=== PATIENT | female | born 1980 | race African-American/Black ===

== ENCOUNTER 2017-01-17 22:58 | Emergency (ER) | payer SELFPAY ==
[~2017-01-17] VITALS: Ht 162.6 cm; Wt 136.0 kg
[~2017-01-17 22:58] MED LIST: METH250T PO
[2017-01-17 23:00] VITALS: BP 168/98; PULSE 82; RESP 16; TEMP 99.3; O2SAT 99
[2017-01-18] MEDS ORDERED: SODIUM CHLOR 0.9% 1000 ML INJ 1,000 ML IV ONE (01:00)
[2017-01-18] MEDS ORDERED: ONDANSETRON HCL 4 MG/2 ML VIAL IV ONE (01:00)
--- NOTE | 2017-01-18 01:04 | PD ---
HPI Chief Complaint: GI Complaint Time Seen by Provider: 23:48 Travel History International Travel<30 days: No Contact w/Intl Traveler<30days: No Traveled to known affect area: No History of Present Illness HPI The patient is a 36 year old female who presents to the [facility] emergency department with a history of n/v/d that began a week ago. She is having diarrhea 5-6 x per day. The stool is brown in color. She denies any blood or mucus in the stool. She has had n/v x3 per day. She denies any sick contacts, no recent antibiotic use, camping, or foreign travel. It began after a potluck dinner at work. A review of systems, the patient otherwise denies any fevers, cough, congestion, neck pain, chest pain, shortness of breath, urinary symptoms, or neurologic symptoms. LMP: beginning of Jan. PFS Past Medical History Narrative Medical The patient's past medical history is significant for hypertension. Diminished Hearing: No Hypertension: Yes Immunizations Current: No Tetanus Vaccination: < 5 Years Influenza Vaccination: No ?: Not LMP: 01/06/17 : 2 Para: 1 Miscarriage: 0 : 0 Past Surgical History Narrative Surgical The patient's past surgical history is significant for a . Section: Yes Social History Alcohol Use: No Tobacco Use: Yes (1/2 ppd) Substance Use: Yes (MARIJUANA/DAILY PT DENIES) Allergies-Medications (Allergen,Severity, Reaction): Coded Allergies: No Known Allergies (Verified , 01/17/17) Reported Meds & Prescriptions Reported Meds & Active Scripts Active Zofran Odt (Ondansetron Odt) 4 Mg Tab 4 Mg SL Q6HR PRN Aldomet (Methyldopa) 250 Mg Tab 500 Mg PO TID Review of Systems Except as stated in HPI: all other systems reviewed are Neg General / Constitutional: No: Fever Eyes: No: Visual changes HENT: No: Headaches Cardiovascular: No: Chest Pain or Discomfort Respiratory: No: Shortness of Breath Gastrointestinal: Positive: Nausea, Vomiting, Diarrhea, Abdominal Pain, Changes in Bowel Habits, No: Hematemesis, Hematochezia Genitourinary: No: Dysuria Musculoskeletal: No: Pain Skin: No Rash Neurologic: No: Weakness Psychiatric: No: Depression Endocrine: No: Polydipsia Hematologic/Lymphatic: No: Easy Bruising Physical Exam Narrative General: The patient is a well-developed well-nourished female in no acute distress. Head and Neck exam: Head is normocephalic atraumatic. Eyes: EOMI, pupils are equal round and reactive to light. Nose: Midline septum with pink mucous membranes Mouth: Dentition unremarkable. Moist mucus membranes. Posterior oropharynx is not erythematous. No tonsillar hypertrophy. Uvula midline. Airway patent. Neck: No palpable lymphadenopathy. No nuchal rigidity. No thyromegaly. Cardiovascular: Regular rate and rhythm without murmurs, gallops, or rubs. Lungs: Clear to auscultation bilaterally. No wheezes, rhonchi, or rales. Abdomen: Soft, with reported discomfort on palpation of bilateral lower quadrants of the abdomen, no other tenderness on palpation of the upper quadrants. No guarding, rebound, or rigidity. Negative Cloe's sign. No point tenderness on palpation over McBurney's point. Normal bowel sounds are audible. Extremities: No clubbing, cyanosis, or edema. 2+ pulses in all 4 extremities. No calf tenderness on palpation. Back: No spinous process tenderness to palpation. No costovertebral angle tenderness to palpation. Neurologic Exam: Grossly nonfocal. Skin Exam: No rash noted. Intact skin that is warm and dry. Data Data Last Documented VS Vital Signs Date Time Temp Pulse Resp B/P (MAP) Pulse Ox O2 Delivery O2 Flow Rate FiO2 01/18/17 05:02 140/78 (98) 01/18/17 01:59 73 16 99 Room Air 01/17/17 23:00 99.3 Orders Orders Complete Blood Count With Diff (01/18/17 00:44) Comprehensive Metabolic Panel (01/18/17 00:44) C-Reactive Protein (Crp) (01/18/17 00:44) Lipase (01/18/17 00:44) Urinalysis - C+S If Indicated (01/18/17 00:44) Magnesium (Mg) (01/18/17 00:44) Ct Abd/Pel W Iv Contrast(Rout) (01/18/17 00:44) Iv Access Insert/Monitor (01/18/17 00:44) Ecg Monitoring (01/18/17 00:44) Oximetry (01/18/17 00:44) Ed Urine Pregnancytest Poc (01/18/17 00:44) Sodium Chlor 0.9% 1000 Ml Inj (Ns 1000 M (01/18/17 01:00) Ondansetron Inj (Zofran Inj) (01/18/17 01:00) Iohexol 350 Inj (Omnipaque 350 Inj) (01/18/17 01:43) Enteric Path (Stool) (01/18/17 03:20) Stool Wbc (Leukocytes) (01/18/17 03:20) C Diff Toxin Pcr (01/18/17 03:20) Labs Laboratory Tests Test 01/18/17 00:50 01/18/17 04:40 White Blood Count 10.5 TH/MM3 Red Blood Count 4.82 MIL/MM3 Hemoglobin 13.9 GM/DL Hematocrit 41.7 % Mean Corpuscular Volume 86.5 FL Mean Corpuscular Hemoglobin 28.8 PG Mean Corpuscular Hemoglobin Concent 33.3 % Red Cell Distribution Width 14.9 % Platelet Count 225 TH/MM3 Mean Platelet Volume 10.4 FL Neutrophils (%) (Auto) 65.3 % Lymphocytes (%) (Auto) 22.9 % Monocytes (%) (Auto) 5.8 % Eosinophils (%) (Auto) 5.5 % Basophils (%) (Auto) 0.5 % Neutrophils # (Auto) 6.9 TH/MM3 Lymphocytes # (Auto) 2.4 TH/MM3 Monocytes # (Auto) 0.6 TH/MM3 Eosinophils # (Auto) 0.6 TH/MM3 Basophils # (Auto) 0.1 TH/MM3 CBC Comment DIFF FINAL Differential Comment Urine Color YELLOW Urine Turbidity CLEAR Urine pH 5.5 Urine Specific [place] 1.014 Urine Protein NEG mg/dL Urine Glucose (UA) NEG mg/dL Urine Ketones NEG mg/dL Urine Occult Blood NEG Urine Nitrite NEG Urine Bilirubin NEG Urine Urobilinogen LESS THAN 2.0 MG/DL Urine Leukocyte Esterase SMALL Urine RBC LESS THAN 1 /hpf Urine WBC 1 /hpf Urine Squamous Epithelial Cells 4 /hpf Urine Mucus FEW /lpf Microscopic Urinalysis Comment CULT NOT INDICATED Blood Urea Nitrogen 7 MG/DL Creatinine 0.68 MG/DL Random Glucose 76 MG/DL Total Protein 7.5 GM/DL Albumin 3.2 GM/DL Calcium Level 7.8 MG/DL Magnesium Level 1.8 MG/DL Alkaline Phosphatase 57 U/L Aspartate Amino Transf (AST/SGOT) 53 U/L Alanine Aminotransferase (ALT/SGPT) 52 U/L Total Bilirubin 0.5 MG/DL Sodium Level 139 MEQ/L Potassium Level 4.6 MEQ/L Chloride Level 112 MEQ/L Carbon Dioxide Level 24.2 MEQ/L Anion Gap 3 MEQ/L Estimat Glomerular Filtration Rate 120 ML/MIN C-Reactive Protein 0.51 MG/DL Lipase 121 U/L Stool C. difficile Toxin (PCR) NEGATIVE Stl C. difficile Toxin Epiderm 027 PRESUMPTIVE NEGATIVE MDM Medical Decision Making Medical Screen Exam Complete: Yes Emergency Medical Condition: Yes Medical Record Reviewed: Yes Interpretation(s) Last Impressions Abdomen/Pelvis CT 01/18/17 0044 Signed Impressions: Service Date/Time: Wednesday, January 18, 2017 01:41 - CONCLUSION: 1. No acute findings within the abdomen and pelvis. No obstruction, free fluid or free air. Chronic sacroiliac joint disease. Vivek Connolly MD Differential Diagnosis Viral versus bacterial gastroenteritis, versus electrolyte arrangements, versus colitis, versus diverticulitis, versus lactose intolerance Narrative Course During the course of the patients emergency department visit, the patients history, examination, and differential diagnosis were reviewed with the patient. The patient had IV access obtained and blood work sent for analysis. The patient was placed on a facility planner with oximetry and blood pressure monitoring. A CT scan of abdomen and pelvis was ordered. The patient was initially provided normal saline 1 L IV fluid bolus, Zofran 4 mg IV. The patients laboratory studies were reviewed and remarkable for a CBC with a white count of 10.5, eosinophil predominance of 5.5, CMP is remarkable for chloride of 112, anion gap 3, calcium 7.8, AST 53, C-reactive protein 0.51, albumin 3.2, lipase 121, urinalysis shows small leukocyte esterase otherwise unremarkable. Stool studies were ordered. C. difficile toxin is negative. Radiology studies were reviewed and remarkable for CT scan of the abdomen and pelvis shows no acute findings within the abdomen and pelvis. No obstruction, free fluid or free air. Chronic sacroiliac joint disease. The patient will be discharged home with a prescription for Zofran. The patient is resting comfortably and feels better, is alert and in no distress. The patients results and examination findings were discussed with the patient. The repeat examination is unremarkable and benign. The history, exam, diagnostic testing, and current condition do not suggest any significant pathology to warrant further testing, continued ED treatment, admission, or surgical evaluation at this point. The vital signs have been stable. The patient does not have uncontrollable pain, intractable vomiting, or other significant symptoms. The patient's condition is stable and appropriate for discharge. The patient will pursue further outpatient evaluation with a primary care physician or other designated or consulting physician as indicated in the discharge instructions. The patient expressed understanding and was agreeable with this plan. Diagnosis Primary Impression: Nausea, vomiting, and diarrhea Referrals: Primary Care Physician 1 week Patient Instructions: Acute Diarrhea (ED), Acute Nausea and Vomiting (ED), General Instructions Additional Instructions: The patient was instructed to avoid milk products over the next week. Med/Other Pt SpecificInfo: Prescription(s) given Scripts Ondansetron Odt (Zofran Odt) 4 Mg Tab 4 MG SL Q6HR Y for Nausea/Vomiting, #7 TAB 0 Refills Prov: Lizette Mattson MD 01/18/17 Disposition: 01 DISCHARGE HOME Condition: Stable Lizette Mattson MD Jan 18, 2017 01:04
[2017-01-18 01:07] LABS: AUTOMATED NEUTROPHIL # 6.9 TH/MM3 (1.8-7.7); BASOPHIL # 0.1 TH/MM3 (0-0.2); BASOPHIL % 0.5 % (0.0-2.0); EOSINOPHIL # 0.6 TH/MM3 (0-0.4); EOSINOPHIL % 5.5 % (0.0-4.0); HEMATOCRIT 41.7 % (35.0-46.0); HEMO FLAGS DIFF FINAL; LYMPH % 22.9 % (9.0-44.0); LYMPHOCYTE # 2.4 TH/MM3 (1.0-4.8); MEAN CELL VOLUME 86.5 FL (80.0-100.0); MEAN CORPUSCULAR HEMOGLOBIN 28.8 PG (27.0-34.0); MEAN CORPUSCULAR HGB CONC 33.3 % (32.0-36.0); MONO % 5.8 % (0.0-8.0); NEUT % 65.3 % (16.0-70.0); PLATELET COUNT 225 TH/MM3 (150-450); RED BLOOD COUNT 4.82 MIL/MM3 (4.00-5.30); RED CELL DISTRIBUTION WIDTH 14.9 % (11.6-17.2); WHITE BLOOD COUNT 10.5 TH/MM3 (4.0-11.0)
[2017-01-18 01:08] VITALS: O2SAT 98
[2017-01-18 01:19] LABS: BLOOD, URINE NEG (NEG); GLUCOSE,URINE NEG (NEG); KETONE, URINE NEG (NEG); MUCUS URINE FEW /lpf (OCC); NITRITE,URINE NEG (NEG); PH, URINE 5.5 (5.0-8.5); SQUAMOUS EPITHELIAL CELL URINE 4 /hpf (0-5); URINE COLOR YELLOW (YELLW/STRAW)
[2017-01-18 01:21] LABS: COMMENT (UR) CULT NOT INDICATED; CULTURE IF INDICATED CULT NOT INDICATED
[2017-01-18 01:26] LABS: ALKALINE PHOSPHATASE 57 U/L (45-117); TOTAL BILIRUBIN ADULT 0.5 MG/DL (0.2-1.0)
[2017-01-18 01:28] LABS: ALT (GPT) 52 U/L (10-53); ANION GAP 3 MEQ/L (5-15); AST (GOT) 53 U/L (15-37); BICARBONATE 24.2 MEQ/L (21.0-32.0); BLOOD UREA NITROGEN 7 MG/DL (7-18); CHLORIDE 112 MEQ/L (98-107); GLOMERULAR FILTRATION RATE 120 ML/MIN (>89); MAGNESIUM 1.8 MG/DL (1.5-2.5); SODIUM (NA) 139 MEQ/L (136-145)
[2017-01-18 01:30] LABS: POTASSIUM 4.6 MEQ/L (3.5-5.1)
[2017-01-18] MEDS ORDERED: IOHEXOL 350 MG/ML 10 ML VIAL (for RAD DIAG) IVCONTRAST ONE (01:43)
[2017-01-18 01:59] VITALS: BP 142/84; PULSE 73; RESP 16; O2SAT 99
--- NOTE | 2017-01-18 02:07 | RADRPT ---
EXAM DATE/TIME: 01/18/2017 01:41 [facility] COMPARISON: No previous studies available for comparison. INDICATIONS : Diverticulitis nausea and diarrhea x1 week. IV CONTRAST: 96 cc Omnipaque 350 (iohexol) IV ORAL CONTRAST: No oral contrast ingested. RADIATION DOSE: 34.48 CTDIvol (mGy) ; Patient body habitus MEDICAL HISTORY : Hypertension. Diabetes mellitus type 2. SURGICAL HISTORY : section. ENCOUNTER: Initial ACUITY: 1 week PAIN SCALE: 3/10 LOCATION: Bilateral abdomen TECHNIQUE: Volumetric scanning of the abdomen and pelvis was performed. Using automated exposure control and ad justment of the mA and/or kV according to patient size, radiation dose was kept as low as reasonably achievable to obtain optimal diagnostic quality images. DICOM format image data is available electro nically for review and comparison. FINDINGS: Lung bases are clear. No acute findings in the liver, spleen, adrenals, kidneys or pancreas. No free fluid. No bowel obstruction. No adenopathy. No calcified gallstones or biliary ductal dilatation. There is abnormal sclerosis on both sides of the sacroiliac joints, left worse than right probably fr om chronic sacroiliitis. CONCLUSION: 1. No acute findings within the abdomen and pelvis. No obstruction, free fluid or free air. Chronic s acroiliac joint disease. Vivek Connolly MD on January 18, 2017 at 1:59 Board Certified Radiologist. This report was verified electronically.
[2017-01-18] MEDS ORDERED: ZOFR4TAB3 SL (03:21)
[2017-01-18 05:02] VITALS: BP 140/78
[2017-01-18 09:40] LABS: C. DIFF EPI 027 PRESUMPTIVE NEGATIVE (NEGATIVE)
== END 2017-01-18 05:01 | disposition home or self-care (01) ==
LOC: NEPC 22:58
DX: R11.2 Nausea with vomiting, unspecified (principal); R19.7 Diarrhea, unspecified; I10 Essential (primary) hypertension; F17.200 Nicotine dependence, unspecified, uncomplicated
CPT/HCPCS: 74177; 80053; 81001; 83690; 83735; 84703; 85025; 86140; 87205; 87493; 87506; 96361; 96374; 99285; J2405; J7030; Q9967